=== PATIENT | female | born 1955 ===

== ENCOUNTER 2021-07-20 16:25 | Emergency (ER) | payer MEDICARE ==
[~2021-07-20] VITALS: Ht 157.5 cm; Wt 68.0 kg
--- NOTE | 2021-07-20 16:41 | ED Fall/Injury ---
General Chief Complaint: Trauma-Non Activation Stated Complaint: FALL Nursing Triage Note: PT TO ROOM 07 [facility] FROM [facility] WITH C/O FALL. PT STATES SHE TRIPPED AND FELL. [facility] STATES FALL WAS UNWITNESSED. PT DENIES HITTING HEAD. PT DENIES LOC, N/V, HEAD/NECK/BACK PAIN. PT STATES THAT SHE DID NOT WANT TO COME TO ED. Source: patient, EMS, halfway records Exam Limitations: no limitations History of Present Illness Date Seen by Provider: July 20, 2021 Time Seen by Provider: 16:28 Initial Comments 65-year-old female brought in by EMS from [facility] after she was found on the floor. She had a recent spontaneous subarachnoid hemorrhage now with difficulty speaking and swallowing. She has general weakness as well. She is not supposed to ambulate. She had nurses in the room around 315pm giving report. She was sitting in her wheelchair at that time. At 345pm an aide had walked in and she was sitting on the floor leaning against the wall. The patient is not really sure if she hit her head, but given her difficulty with verbal language at this time they referred her to the emergency department. They states she is otherwise at her baseline. She is otherwise denying any other acute complaints. Allergies and Home Medications Allergies Coded Allergies: Penicillins (Verified Allergy, Unknown, 07/20/21) acetaminophen (Verified Allergy, Unknown, 07/20/21) bee venom protein (honey bee) (Verified Allergy, Unknown, 07/20/21) codeine (Verified Allergy, Unknown, 07/20/21) Patient Home Medication List Home Medication List Reviewed: Yes Review of Systems Review of Systems Constitutional: No fever Eyes: No Symptoms Reported Ears, Nose, Mouth, Throat: no symptoms reported Respiratory: no symptoms reported Cardiovascular: no symptoms reported Gastrointestinal: no symptoms reported Genitourinary: no symptoms reported Musculoskeletal: no symptoms reported Skin: no symptoms reported Psychiatric/Neurological: No Symptoms Reported All Other Systems Reviewed Negative Unless Noted: Yes Past Tkewgie-Vgaqjs-Mijxxe Hx Patient Social History Tobacco Use?: No Smoking Status: Never a Smoker Smokeless Tobacco Frequency: Never a User Use of E-Cig and/or Vaping dev: No Use of E-Cig and/or Vaping Adan: Never a User Substance use?: No Alcohol Use?: No Pt feels they are or have been: No Past Medical History Surgeries: Yes (neurosurgery after brain bleed) Physical Exam Vital Signs Vital Signs - First Documented 07/20/21 07/20/21 16:25 19:40 Temp 36.3 Pulse 88 Resp 15 B/P (MAP) 108/54 (72) Pulse Ox 100 O2 Delivery Room Air Capillary Refill : Less Than 3 Seconds Height, Weight, BMI Height: '" Weight: lbs. oz. kg; 27.00 BMI Method: General Appearance: WD/WN, no apparent distress HEENT: PERRL/EOMI, normal ENT inspection, pharynx normal Neck: non-tender, full range of motion, supple, normal inspection Cardiovascular: regular rate, rhythm, no edema, no murmur Respiratory: chest non-tender, lungs clear, normal breath sounds, no respiratory distress, no accessory muscle use Gastrointestinal: normal bowel sounds, non tender, soft; No distended, No guarding, No rebound Back: normal inspection, no CVA tenderness, no vertebral tenderness Extremities: normal range of motion, non-tender, normal inspection, no pedal edema, no calf tenderness, normal capillary refill Neurologic/Psychiatric: other (Oriented to self only, flat affect, will answer yes or no questions, moving all 4 extremities) Skin: normal color, warm/dry Lymphatic: no adenopathy [place] Coma Score Best Eye Response: (4) Open Spontaneously Best Verbal Response: (4) Confused Conversation Best Motor Response: (6) Obeys Commands Progress/Results/Core Measures Results/Orders My Orders Orders - DIAMOND KIMBALL MD Ct Head Wo (07/20/21 16:33) Vital Signs/I&O 07/20/21 07/20/21 16:25 19:40 Temp 36.3 Pulse 88 70 Resp 15 19 B/P (MAP) 108/54 (72) 135/68 Pulse Ox 100 O2 Delivery Room Air Room Air Blood Pressure Mean: 72 Progress Progress Note : Progress Note Fell and hit head potentially, but unsure. CT head unremarkable. Patient at her baseline. Sent back to [facility]. Departure Impression Primary Impression: Fall Qualified Codes: W19.XXXA - Unspecified fall, initial encounter Disposition: 01 HOME, SELF-CARE Condition: Stable Departure-Patient Inst. Decision time for Depature: 18:09 Patient Instructions: Preventing Falls ED Add. Discharge Instructions: Follow-up with your regular doctor if things are not improving or you have pain. Your CT head did not show any new bleed DIAMOND KIMBALL MD July 20, 2021 16:41
--- NOTE | 2021-07-20 17:54 | Diagnostic Imaging Report ---
PROCEDURE: CT head without contrast. TECHNIQUE: Multiple contiguous axial images were obtained through the brain without the use of intravenous contrast. Auto Exposure Controls were utilized during the CT exam to meet ALARA standards for radiation dose reduction. DATE: July 20, 2021. COMPARISON: None. INDICATION: 55-year-old female, fall. Hit head. Headache. FINDINGS: There is a right-sided TOILET ATTENDANT shunt catheter. The imaged tubing appears intact. The tip approximates the medial aspect of the right lateral ventricle. There is a metallic foreign body near the level of the [place] which may be procedurally related. There is a postoperative defect of the right frontal bone. There is no identified acute skull fracture. The visualized portions of the paranasal sinuses, mastoid air cells and middle ears are well aerated. There is prominent abnormal low-attenuation in the periventricular and subcortical white matter. There are areas of CSF-like attenuation in the right and left basal ganglia likely relating to remote prior lacunar infarcts. There is no ann hydrocephalus. There is no identified abnormal extra-axial fluid collection. There is no evidence of acute intracranial hemorrhage. There is no mass effect or midline shift. IMPRESSION: 1. Extensive and fairly confluent areas of abnormal low-attenuation in the periventricular and subcortical white matter which are technically nonspecific. Primary considerations include extensive findings of chronic small vessel ischemic disease, demyelinating etiology or vasculitis. Comparison imaging is not available to assess for potential stability. 2. Intact visualized TOILET ATTENDANT shunt catheter tubing without gross hydrocephalus. 3. No evidence of an acute intracranial hemorrhage or other acute intracranial abnormality. Dictated by: Dictated on workstation # [id number]
[2021-07-20 19:40] VITALS: BP 135/68
== END 2021-07-20 19:40 | disposition home or self-care (01) ==
LOC: ER 16:28
DX: Z04.1 Encounter for examination and observation following transport accident (principal); W19.XXXA Unspecified fall, initial encounter
CPT/HCPCS: 70450